=== PATIENT | male | born 1950 | race Caucasian/White ===

== ENCOUNTER → 2017-06-08 | Outpatient (CLI) | payer OTHER ==
[~2017-06-08] MED LIST: ASA81 MG; FUROSEMIDE INJ 10 MG/ML 4 ML VIAL ONE; Z.0.CENTRUM COMPLE1; Z.0.FISH OIL300 MG; Z.0.OMEPRAZOLE40 MG
--- NOTE | 2017-06-08 20:18 | Diagnostic Imaging Report ---
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 Technique: Following intravenous administration of 10 mCi of Tc-99m MAG3, dynamic images of the kidneys in the posterior projection were obtained through 40 minutes. Lasix 40 mg was administered intravenously at 10 minutes post injection of the tracer. Report: Left kidney: Perfusion of the left kidney is prompt. 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 Extraction of tracer from the blood pool by the remaining renal parenchyma is normal. Clearance of tracer from the renal parenchyma is prompt. The pelvicalyceal system is minimally dilated. Increased pooling of tracer is seen in an upper pole calyx. No net drainage of tracer from the pelvicalyceal system is seen prior to administration of Lasix. Washout of tracer from the pelvicalyceal system following administration of Lasix is rapid with a T-1/2 of 3-4 minutes (normal less than 15 minutes). Duplicated ureters exit the renal hilum. No significant stasis of tracer is seen within the left ureter. Right kidney: Perfusion to the right kidney is prompt. The right kidney has a distorted reniform shape with blunting of the lower pole. Extraction of tracer by the renal parenchyma is normal. Clearance of tracer from the renal parenchyma is prompt. The pelvicalyceal system is not dilated. Minimally increased pooling of tracer is seen within the pelvicalyceal system. Drainage of tracer from the pelvicalyceal system is adequate prior to administration of Lasix. Washout of tracer from the pelvicalyceal system following administration of Lasix is rapid with a T-1/2 of 4-5 minutes (normal less than 15 minutes). No significant stasis of tracer is seen within the right ureter. Differential renal function: The left kidney contributes 35% of total renal function and the right kidney contributes 65% (normal 43-57%). Impression: 1. The left kidney is scarred, however, the remaining renal parenchyma appears to function normally. The differential renal function of 35% reflects the greater scarring of the left kidney compared to the right. No hydronephrosis is present. No physiologically significant obstruction of the renal collecting system is present. 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 2. The right kidney appears to have loss of renal parenchyma in the lower pole causing a blunted appearance of the lower third of the left kidney. The function of the remaining renal parenchyma appears normal. No hydronephrosis is present. No physiologically significant obstruction of the renal collecting system is present. Signed by: Dr. Katrin Beverly M.D. on 06/08/2017 8:14 PM
== END ==
LOC: NM 09:36
PROVIDERS: ATTEND Urology
DX: N26.9 Renal sclerosis, unspecified (principal); N18.9 Chronic kidney disease, unspecified
CPT/HCPCS: 78708; A9562; J1940

== ENCOUNTER → 2018-02-19 | Outpatient (CLI) | payer OTHER ==
[~2018-02-19] MED LIST changes: -FUROSEMIDE INJ 10 MG/ML 4 ML VIAL ONE
--- NOTE | 2018-02-19 12:05 | Diagnostic Imaging Report ---
Exam: KUB. Clinical History: Calculus of kidney Comparison: 12/31/2016 Findings: Frontal view of the abdomen demonstrates a nonobstructive bowel gas pattern with moderate retained stool. There are no suspicious calcifications.No acute bone abnormality. Impression: No definite urinary tract calcifications are seen. Signed by: Dr. Damian Man M.D. on 02/19/2018 12:02 PM
== END ==
LOC: RAD 10:53
PROVIDERS: ATTEND Urology
DX: N20.0 Calculus of kidney (principal)
CPT/HCPCS: 74018

== ENCOUNTER → 2019-01-13 | Outpatient (CLI) | payer OTHER ==
--- NOTE | 2019-01-13 12:43 | Diagnostic Imaging Report ---
Abdomen, 1 view. History: Kidney stone. Comparison: 02/19/2018. Findings: Air is scattered throughout nondilated small and large bowel. No calcifications are seen in the region of the kidneys. Left pelvic calcification is unchanged, likely vascular. The osseous structures are intact. IMPRESSION: No significant change. Signed by: Kaveh Fitzpatrick on 01/13/2019 12:40 PM
== END ==
LOC: RAD 11:43
PROVIDERS: ATTEND Urology
DX: N20.0 Calculus of kidney (principal)
CPT/HCPCS: 74018

== ENCOUNTER → 2020-06-04 | Outpatient (CLI) | payer OTHER ==
[~2020-06-04] MED LIST changes: +FUROSEMIDE INJ 10 MG/ML 4 ML VIAL ONE
== END ==
LOC: NM 13:32
PROVIDERS: ATTEND Urology
DX: N26.9 Renal sclerosis, unspecified (principal); N18.9 Chronic kidney disease, unspecified
CPT/HCPCS: 78708; A9562; J1940